=== PATIENT | female | born 1980 | race Caucasian/White ===

== ENCOUNTER 2019-03-16 17:26 | Emergency (ER) | payer OTHER ==
[~2019-03-16] VITALS: Ht 162.6 cm; Wt 86.0 kg
[2019-03-16 17:33] VITALS: Ht 162.6 cm; Wt 86.0 kg
--- NOTE | 2019-03-16 19:10 | ERD ---
ER Documentation Chief Complaint Chief Complaint chest pain x 30 minutes HPI The patient is a 38-year-old female, presenting to the ER because of minimal left-sided chest discomfort around 5 PM after she turned to her right side to remove a tag from her pant. The pain is much better at this time, worse with movement. She had similar symptoms previously. He denies chest pain with vomiting/radiation/exertion/diaphoresis, dyspnea, abdominal pain, vomiting, dysuria, diarrhea. She does not smoke, drinks socially Past medical history: None Past surgical history: Cholecystectomy ROS All systems reviewed and are negative except as per history of present illness. Medications Home Meds Reported Medications Norgestimate-Ethinyl Estradiol (Zqk-Vg-Agyeryrtm Tablet) 1 Each Tablet, 1 EACH PO DAILY, TAB 03/16/19 Allergies Allergies: Coded Allergies: No Known Allergy (Unverified , 03/16/19) Physical Exam Vitals Vital Signs Date Temp Pulse Resp B/P (MAP) Pulse Ox O2 O2 Flow FiO2 Time Delivery Rate 03/16/19 76 22 120/81 100 Room Air 21:57 (94) 03/16/19 98.0 92 18 148/77 98 17:33 (100) Physical Exam Const: No acute distress. Head: Atraumatic. Eyes: Normal Conjunctiva. ENT: Normal External Ears, Nose and Mouth. Neck: Full range of motion. No meningismus. Resp: Clear to auscultation bilaterally. Cardio: Regular rate and rhythm. Abd: Soft, non distended, normal bowel sounds, non tender. Skin: No petechiae or rashes. Back: No midline or flank tenderness. Ext: No cyanosis, or edema. Neur: Awake and alert. No focal deficit Psych: Normal Mood and Affect. Results 24 hrs Laboratory Tests Test 03/16/19 19:48 POC Beta HCG, Qualitative NEGATIVE Current Medications Medications Dose Sig/Piotr Start Time Status Last (Trade) Ordered Route PRN Stop Time Admin Dose Reason Admin Ketorolac 30 mg ONCE STAT 03/16/19 DC 03/16/19 Tromethamine IV 20:54 20:59 (Toradol) 03/16/19 20:55 Procedures/MDM EKG: At 5:35 PM read by emergency physician Rate/Rhythm: Normal Sinus Rhythm 95 beats/min QRS, ST, T-waves: No ST elevation, no T inversion, IRBBB, prolong QT Impression: Abnormal EKG MEDICAL MAKING DECISION: The patient is a 38-year-old female, presenting with acute chest pain, most likely due to acute chest wall pain, is above outpatient follow-up. She was treated with Toradol 30 g IV for pain with good response The differential diagnoses considered include but are not limited to acute coronary syndrome, acute myocardial infarction, pericarditis, pulmonary emb olism, aortic dissection, pneumonia, pleural effusion, pneumothorax, GERD, chest wall pain. Departure Diagnosis: Primary Impression: Chest pain Condition: Good Comments I discussed the findings with the patient. I advised the patient to follow-up with the primary physician in about 2-3 days for reevaluation and referral to a dive supervisor due to abnormal EKG, sooner if needed and return if any concern. Disclaimer: Inadvertent spelling and grammatical errors are likely due to EHR/dictation software use and do not reflect on the overall quality of patient care. Also, please note that the electronic time recorded on this note does not necessarily reflect the actual time of the patient encounter. SAMSON DA SILVA MD March 16, 2019 19:10
[2019-03-16] MEDS ORDERED: NORG1TAB82 PO (19:16)
[2019-03-16] MEDS ORDERED: KETOROLAC 30 MG INJ IV STA (20:54)
[2019-03-16 21:57] VITALS: BP 120/81; PULSE 76; RESP 22
--- NOTE | 2019-03-20 15:07 | RADRPT ---
Vent Rate: 72 bpm RR Interval: 0 msec IA Interval: 126 msec QRS Duration: 116 msec QT Interval: 398 msec QTC Interval: 435 msec P-R-T [place]: 44 - -5 - 58 degrees Normal sinus rhythm Cannot rule out Anterior infarct , age undetermined Abnormal ECG Electronically Signed By: [facility]
== END 2019-03-16 21:59 | disposition home or self-care (01) ==
LOC: E/R 17:26
DX: R07.9 Chest pain, unspecified (principal)
CPT/HCPCS: 81025; 93005; 96374; 99284; J1885